=== PATIENT | female | born 2000 | race Caucasian/White ===

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

== ENCOUNTER → 2020-01-18 | Outpatient (CLI) | payer BC ==
[~2020-01-18] MED LIST changes: +ZOFRAN ODT4 MG PO
== END ==
LOC: COL.RAD 16:27
DX: N83.201 Unspecified ovarian cyst, right side (principal)

== ENCOUNTER → 2020-02-08 | Outpatient (CLI) | payer BC | LOC: COL.RAD 12:34 | DX: N83.201 Unspecified ovarian cyst, right side (principal) ==